=== PATIENT | female | born 1995 | race Caucasian/White ===

== ENCOUNTER 2017-06-26 22:41 | Emergency (ER) | payer OTHER ==
[~2017-06-26] VITALS: Ht 162.6 cm; Wt 59.0 kg
[2017-06-26 22:55] VITALS: BP 128/81
[2017-06-26 23:05] VITALS: BP 122/72
== END 2017-06-26 23:05 ==
LOC: MED 22:41
DX: Z02.89 Encounter for other administrative examinations (principal); V47.9XXA Unspecified car occupant injured in collision with fixed or stationary object in traffic accident, initial encounter; Y93.89 Activity, other specified; Y92.488 Other paved roadways as the place of occurrence of the external cause; Y99.8 Other external cause status
CPT/HCPCS: 99283